=== PATIENT | female | born 1940 | race Caucasian/White ===

== ENCOUNTER 2017-04-25 22:12 | Observation (INO) | payer OTHER, MEDICARE ==
[~2017-04-25] VITALS: Ht 170.2 cm; Wt 85.0 kg
[~2017-04-25 22:12] MED LIST: ASPI81CH3; CALCCHW9; DULE100A PO; FLON0.053; GLUC15002; MULT1TAB46; NAPR220T95 PO; OMEG100037; OSTETAB
[2017-04-25 22:26] VITALS: BP 168/77; PULSE 75; RESP 16; TEMP 97.7; O2SAT 93
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
[2017-04-25 23:17] LABS: AUTOMATED NEUTROPHIL # 7.1 TH/MM3 (1.8-7.7); BASOPHIL % 0.4 % (0.0-2.0); EOSINOPHIL # 0.1 TH/MM3 (0-0.4); EOSINOPHIL % 1.4 % (0.0-4.0); HEMATOCRIT 34.6 % (35.0-46.0); HEMO FLAGS DIFF FINAL; LYMPH % 19.1 % (9.0-44.0); LYMPHOCYTE # 1.9 TH/MM3 (1.0-4.8); MEAN CELL VOLUME 84.1 FL (80.0-100.0); MEAN CORPUSCULAR HEMOGLOBIN 27.7 PG (27.0-34.0); MONO % 6.5 % (0.0-8.0); NEUT % 72.6 % (16.0-70.0); PLATELET COUNT 240 TH/MM3 (150-450); RED BLOOD COUNT 4.11 MIL/MM3 (4.00-5.30); WHITE BLOOD COUNT 9.8 TH/MM3 (4.0-11.0)
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
[2017-04-25 23:25] LABS: APTT (PATIENT) 22.6 SEC (24.3-30.1); PROTHROMBIN TIME - PATIENT 11.6 SEC (9.8-11.6)
[2017-04-25 23:39] LABS: ANION GAP 9 MEQ/L (5-15)
[2017-04-25 23:40] LABS: ALKALINE PHOSPHATASE 108 U/L (45-117); ALT (GPT) 31 U/L (10-53); AST (GOT) 28 U/L (15-37); BLOOD UREA NITROGEN 18 MG/DL (7-18); CHLORIDE 105 MEQ/L (98-107); GLOMERULAR FILTRATION RATE 84 ML/MIN (>89); SODIUM (NA) 144 MEQ/L (136-145); TOTAL BILIRUBIN ADULT 0.6 MG/DL (0.2-1.0)
[2017-04-25 23:44] LABS: POTASSIUM 2.6 MEQ/L (3.5-5.1)
[2017-04-26] VITALS (9 sets, daily range): BP systolic 127–172; BP diastolic 61–86; PULSE 75–84; RESP 16–20; TEMP 97.7–98.1; O2SAT 91–97
[2017-04-26] MEDS ORDERED: NALOXONE HCL 0.4 MG/ML AMP IV PUSH PRN
[2017-04-26] MEDS ORDERED: SODIUM CHLORIDE 0.9% FLUSH 10 ML FLUSH IV FLUSH PRN
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
[2017-04-26] MEDS ORDERED: POTASSIUM CHLOR 20 MEQ PREMIX 100 ML IV SCH (01:45)
[2017-04-26] MEDS ORDERED: predniSONE 10 MG TAB PO ONE (01:45)
[2017-04-26] MEDS ORDERED: RESP: ALBUTEROL 2.5 MG/IPRATROPIUM 0.5 MG NEB (PRN) NEB (01:45)
[2017-04-26] MEDS ORDERED: POTASSIUM CHLORIDE 20 MEQ CONTROLLED RELEASE TAB PO ONE ×3 (01:45→12:00)
[2017-04-26] MEDS: POTASSIUM CHLORIDE INJ 20 MEQ in SODIUM CHLORIDE 0.9% INJ 100 ML IV SCH ×2 (02:24→04:35)
[2017-04-26] MEDS ORDERED: POTA10CA PO (02:45)
[2017-04-26] MEDS ORDERED: CLOP75TA PO (02:45)
[2017-04-26] MEDS ORDERED: IBUP200T2 PO (02:45)
[2017-04-26] MEDS ORDERED: FAMO1TAB30 PO (02:45)
[2017-04-26] MEDS ORDERED: FURO1TAB62 PO ×2 (02:45→14:28)
[2017-04-26] MEDS ORDERED: PRED2.5T PO (02:45)
[2017-04-26] MEDS ORDERED: PARO20TA2 PO (02:45)
[2017-04-26] MEDS: RESP: ALBUTEROL 2.5 MG/IPRATROPIUM 0.5 MG NEB (SCH) NEB ×3 (02:55→16:00)
[2017-04-26 07:08] LABS: AUTOMATED NEUTROPHIL # 6.2 TH/MM3 (1.8-7.7); BASOPHIL % 0.4 % (0.0-2.0); EOSINOPHIL # 0.2 TH/MM3 (0-0.4); EOSINOPHIL % 1.9 % (0.0-4.0); HEMATOCRIT 35.9 % (35.0-46.0); HEMO FLAGS DIFF FINAL; LYMPH % 21.5 % (9.0-44.0); LYMPHOCYTE # 1.9 TH/MM3 (1.0-4.8); MEAN CELL VOLUME 84.9 FL (80.0-100.0); MEAN CORPUSCULAR HEMOGLOBIN 27.3 PG (27.0-34.0); MEAN CORPUSCULAR HGB CONC 32.2 % (32.0-36.0); MONO % 7.3 % (0.0-8.0); NEUT % 68.9 % (16.0-70.0); PLATELET COUNT 224 TH/MM3 (150-450); RED BLOOD COUNT 4.23 MIL/MM3 (4.00-5.30); RED CELL DISTRIBUTION WIDTH 17.6 % (11.6-17.2)
[2017-04-26 07:51] LABS: BICARBONATE 29.6 MEQ/L (21.0-32.0); POTASSIUM 2.9 MEQ/L (3.5-5.1)
[2017-04-26] MEDS ORDERED: MAGNESIUM SULFATE 1 GM PREMIX 100 ML IV ONE (08:45)
[2017-04-26] MEDS ORDERED: POTASSIUM CHLORIDE 20 MEQ CONTROLLED RELEASE TAB PO SCH (09:00)
[2017-04-26] MEDS ORDERED: SODIUM CHLORIDE 0.9% FLUSH 10 ML FLUSH IV FLUSH SCH (09:00)
[2017-04-26] MEDS ORDERED: PANTOPRAZOLE SOD 40 MG DELAYED RELEASE TAB PO SCH (09:00)
[2017-04-26] MEDS ORDERED: FUROSEMIDE 40 MG TAB PO SCH (09:00)
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
[2017-04-26] MEDS ORDERED: POTA20TA5 PO (14:28)
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
== END 2017-04-26 17:57 | disposition home or self-care (01) ==
LOC: NEPC 22:12 → NEDA 04-26 00:01 → NEPGCP 04-26 03:08
PROVIDERS: ADMIT Hospitalist; ATTEND Hospitalist
DX: S13.4XXA Sprain of ligaments of cervical spine, initial encounter (principal); I50.9 Heart failure, unspecified; J44.9 Chronic obstructive pulmonary disease, unspecified; E87.6 Hypokalemia; M47.812 Spondylosis without myelopathy or radiculopathy, cervical region; I25.10 Atherosclerotic heart disease of native coronary artery without angina pectoris; Z95.1 Presence of aortocoronary bypass graft; Z87.891 Personal history of nicotine dependence; V49.88XA Car occupant (driver) (passenger) injured in other specified transport accidents, initial encounter
CPT/HCPCS: 71010; 72141; 80048; 80053; 83735; 83880; 84132; 85025; 85610; 85730; 94640; 94664; 96361; 96365; 97161; 99285; G0378; G8987; G8988; J3475; J3480; J7512